=== PATIENT | female | born 1955 | race Caucasian/White ===

== ENCOUNTER 2017-06-11 10:53 | Inpatient (IN) | payer OTHER, MEDICAID ==
[2017-06-11] MEDS: NS 1000 ML 1,000 ML IV SCH (13:08)
[2017-06-11 13:41] LABS: BASOPHILS % (AUTO) 0.4 % (0.2-1.0); EOSINOPHILS # (AUTO) 0.1 x10^3/uL (0.0-0.2); EOSINOPHILS % (AUTO) 1.5 % (0.9-2.9); HEMATOCRIT 39.1 % (36.0-47.0); HEMOGLOBIN 13.4 g/dL (12.0-16.0); LYMPHOCYTES # (AUTO) 2.2 X10^3/uL (1.3-2.9); LYMPHOCYTES % (AUTO) 33.8 % (21.0-51.0); MEAN CORPUSCULAR HEMOGLOBIN 31.7 pg (27.0-34.0); MEAN CORPUSCULAR HGB CONC 34.3 g/dL (33.0-35.0); MEAN CORPUSCULAR VOLUME 92.5 fL (80.0-100.0); MEAN PLATELET VOLUME 10.5 fL (7.4-11.0); MONOCYTES # (AUTO) 0.6 x10^3/uL (0.3-0.8); NEUTROPHILS # (AUTO) 3.7 x10^3/uL (2.2-4.8); NEUTROPHILS % (AUTO) 55.3 % (42.0-75.0); PLATELET COUNT 146 X10^3/uL (150.0-450.0); RED BLOOD COUNT 4.23 X10^6/uL (3.5-5.4); RED CELL DISTRIBUTION WIDTH 13.9 % (11.6-16.5); WHITE BLOOD COUNT 6.6 X10^3/uL (3.6-10.0)
[2017-06-11] MEDS: DEMEROL INJ IVP PRN ×2 (13:43→20:24)
[2017-06-11 13:52] LABS: ALANINE AMINOTRANSFERASE 37 Units/L (12-78); ALBUMIN 3.6 g/dL (3.4-5.0); ALKALINE PHOSPHATASE 101 Units/L (46-116); AMYLASE 43 Units/L (25-115); ASPARTATE AMINO TRANSFERASE 40 Units/L (15-37); BLOOD UREA NITROGEN 10 mg/dL (7-18); CALCIUM 9.1 mg/dL (8.5-10.1); CARBON DIOXIDE 33.3 mmol/L (21-32); CHLORIDE 102 mmol/L (98-107); CREATININE 0.56 mg/dL (0.55-1.02); LIPASE 111 Units/L (73-393); SODIUM 139 mmol/L (136-145); TOTAL PROTEIN 7.7 g/dL (6.4-8.2); eGFR BLACK RACES > 60 (>60); eGFR NON BLACK RACES > 60 (>60)
[2017-06-11 15:43] LABS: BILIRUBIN,URINE NEGATIVE (NEGATIVE); BLOOD/HEMOGLOBIN,URINE 1+ (NEGATIVE); GLUCOSE, URINE NEGATIVE (NEGATIVE); KETONES,URINE NEGATIVE (NEGATIVE); LEUKOCYTE ESTERASE ,URINE NEGATIVE (NEGATIVE); NITRITES,URINE NEGATIVE (NEGATIVE); PROTEIN,URINE NEGATIVE (NEGATIVE); UROBILINOGEN,URINE NORMAL (NORMAL)
[2017-06-11 15:51] LABS: APPEARANCE,URINE CLEAR (CLEAR); COLOR,URINE YELLOW (YELLOW)
[2017-06-11 15:52] LABS: BACTERIA,URINE NEGATIVE /HPF (NEGATIVE); SQUAMOUS EPITHELIAL CELL,UR NEGATIVE /HPF (NEGATIVE)
--- NOTE | 2017-06-11 15:55 | US ---
Ultrasound gallbladder Indication: Pain and history the pancreatitis. Technique: Dynamic grayscale Doppler imaging through the abdomen using a transabdominal approach. Findings: The gallbladder wall is not thickened at 2 mm. The common bile duct is 4 mm. The right kidn ey measures 11 cm in length. No hydronephrosis identified. Limited images of the pancreas shows no ac juanita abnormality. Impression: No acute abnormality Reported By:
[2017-06-11] MEDS ORDERED: NS 100 ML IV 100 ML IV ONE (17:02)
[2017-06-11] MEDS: ZOFRAN INJ 4 MG VIAL IVP PRN ×2 (18:13→22:09)
--- NOTE | 2017-06-11 18:25 | RAD ---
Examination: KUB History: Abdominal pain Findings: There is mild gaseous distention of small and large bowel in a nonobstructing pattern. Ther e is slight residual residual contrast material in the colon. Contrast is also present in the urinary tract. The bladder is distended. There is no evidence for ascites, organ enlargement or pathologic c alcification. Impression: No acute abnormality noted. Contrast material in urinary tract and bowel, consistent with recent diagnostic imaging. Nonspecific dilatation of urinary bladder. Reported By:
--- NOTE | 2017-06-11 19:13 | DR.UPDATE ---
H&P Update History and Physical Update: WAS SEEN IN THE OFFICE TODAY. A H&P WAS COMPLETED PRIOR TO ADMISSION. PATIENT HAS BEEN SEEN AND EXAMINED WITH NO CHANGES NOTED TO H&P. Changes noted: NO Yes with the following:
--- NOTE | 2017-06-11 22:42 | CT ---
CT abdomen with contrast Indication: History pancreatitis. Comparison: 06/11/2017 ultrasound Technique: Helical images through the abdomen with IV and oral contrast. Coronal and sagittal reforma ts provided. Findings: Review of bone windows shows L4 on L5 degenerative change destructive osseous lesions seen. Limited images through the lower chest demonstrate no acute abnormality. Abdomen: The liver, gallbladder spleen pancreas and adrenal glands. The stomach visualized small katharina l appear. Contrast enters the without obstruction visualized colonic loops show acute abnormality vas culature shows minimal calcification kidneys. Single calcifications noted the head of the pancreas. Impression: 1. No evidence of acute pancreatitis. Single calcification in the head of the pancreas could reflect episode of prior pancreatitis. 2. No other acute abdominal abnormality. 3. Spine degenerative change minimal vascular plaque. Reported By:
[2017-06-12] MEDS: NS 1000 ML 1,000 ML IV SCH ×4 (03:18→16:49)
[2017-06-12] MEDS: ZOFRAN INJ 4 MG VIAL IVP PRN ×3 (03:19→16:30)
[2017-06-12] MEDS: DEMEROL INJ IVP PRN ×3 (03:19→19:34)
[2017-06-12 05:23] LABS: BASOPHILS % (AUTO) 0.5 % (0.2-1.0); EOSINOPHILS # (AUTO) 0.1 x10^3/uL (0.0-0.2); EOSINOPHILS % (AUTO) 2.3 % (0.9-2.9); HEMOGLOBIN 12.9 g/dL (12.0-16.0); LYMPHOCYTES % (AUTO) 37.6 % (21.0-51.0); MEAN CORPUSCULAR HEMOGLOBIN 31.5 pg (27.0-34.0); MEAN CORPUSCULAR HGB CONC 33.9 g/dL (33.0-35.0); MEAN CORPUSCULAR VOLUME 92.9 fL (80.0-100.0); MEAN PLATELET VOLUME 10.7 fL (7.4-11.0); MONOCYTES # (AUTO) 0.5 x10^3/uL (0.3-0.8); MONOCYTES % (AUTO) 10.3 % (0.0-13.0); NEUTROPHILS # (AUTO) 2.6 x10^3/uL (2.2-4.8); NEUTROPHILS % (AUTO) 49.3 % (42.0-75.0); PLATELET COUNT 134 X10^3/uL (150.0-450.0); RED BLOOD COUNT 4.09 X10^6/uL (3.5-5.4); RED CELL DISTRIBUTION WIDTH 13.7 % (11.6-16.5); WHITE BLOOD COUNT 5.3 X10^3/uL (3.6-10.0)
[2017-06-12 05:26] LABS: ALANINE AMINOTRANSFERASE 30 Units/L (12-78); ALBUMIN 3.1 g/dL (3.4-5.0); ALKALINE PHOSPHATASE 89 Units/L (46-116); AMYLASE 34 Units/L (25-115); ASPARTATE AMINO TRANSFERASE 33 Units/L (15-37); BLOOD UREA NITROGEN 8 mg/dL (7-18); CALCIUM 8.8 mg/dL (8.5-10.1); CHLORIDE 105 mmol/L (98-107); CHOL/HDL RATIO 3.8 (0.0-5.0); CHOLESTEROL 161 mg/dL (0-200); COR CA(FOR HYPOALB) 9.5 mg/dL (8.5-10.1); HDL CHOLESTEROL 42 mg/dL (40-60); LIPASE 93 Units/L (73-393); SODIUM 141 mmol/L (136-145); TRIGLYCERIDES 137 mg/dL (0-150); eGFR BLACK RACES > 60 (>60); eGFR NON BLACK RACES > 60 (>60)
[2017-06-12 10:04] VITALS: BMI 16.8
[2017-06-12] MEDS: LOPRESSOR TAB 25 MG PO SCH ×2 (10:48→20:06)
[2017-06-12] MEDS: PROzac PO SCH (10:49)
[2017-06-12] MEDS: LANOXIN PO SCH (11:19)
--- NOTE | 2017-06-12 14:34 | NM ---
Nuclear medicine HIDA scan with ejection fraction Indication:Abdominal pain Comparison: Ultrasound on 06/11/2017 Technique: Multiple scintigraphic images of the abdomen were obtained the intravenous administration of 5.4 mCi of technetium labeled Choletec. Following distention of the gallbladder with radiotracer 8 oz of oral Ensure was administered. An es timated gallbladder ejection fraction was calculated based on the physiologic response to a fatty millicent l. Findings: Homogeneous uptake of radiotracer is seen throughout the liver. This intrabiliary ductal system is o bserved normally. The common hepatic and common bile duct grossly appear unremarkable with normal bi liary-bowel transit. The gallbladder is observed to fill normally. After the IV administration of insure, an abnormal gallbladder ejection fraction of 26% (normal > 35% ) is observed. IMPRESSION: 1. Normal hepatobiliary imaging scan. 2. Decreased gallbladder ejection fraction measuring approximately 26% . Reported By:
--- NOTE | 2017-06-12 16:48 | RAD ---
HISTORY: 61-year-old female, preoperative examination for cholecystectomy. Study: Frontal view of the chest. Comparison: None. Findings: The trachea is midline. The cardiac silhouette is unremarkable. Prominent interstitium and mild fla ttening of the diaphragms with trace right effusion. Soft tissues are unremarkable. Osseous structur es are unremarkable. IMPRESSION: 1. Trace right effusion with findings consistent with COPD. Reported By:
[2017-06-12] MEDS: LIPITOR TAB 40 MG PO SCH (20:06)
[2017-06-13] MEDS: NS 1000 ML 1,000 ML IV SCH ×4 (01:58→20:43)
[2017-06-13] MEDS: ZOFRAN INJ 4 MG VIAL IVP PRN ×3 (01:59→20:32)
[2017-06-13] MEDS: TYLENOL #3 TAB (W/CODEINE) PO PRN ×2 (04:13→18:18)
[2017-06-13 05:16] LABS: BASOPHILS % (AUTO) 0.5 % (0.2-1.0); EOSINOPHILS # (AUTO) 0.1 x10^3/uL (0.0-0.2); EOSINOPHILS % (AUTO) 2.6 % (0.9-2.9); HEMATOCRIT 39.6 % (36.0-47.0); HEMOGLOBIN 13.4 g/dL (12.0-16.0); LYMPHOCYTES # (AUTO) 2.1 X10^3/uL (1.3-2.9); LYMPHOCYTES % (AUTO) 39.7 % (21.0-51.0); MEAN CORPUSCULAR HEMOGLOBIN 31.6 pg (27.0-34.0); MEAN CORPUSCULAR HGB CONC 33.7 g/dL (33.0-35.0); MEAN CORPUSCULAR VOLUME 93.6 fL (80.0-100.0); MEAN PLATELET VOLUME 10.7 fL (7.4-11.0); MONOCYTES # (AUTO) 0.5 x10^3/uL (0.3-0.8); NEUTROPHILS # (AUTO) 2.4 x10^3/uL (2.2-4.8); NEUTROPHILS % (AUTO) 47.2 % (42.0-75.0); PLATELET COUNT 148 X10^3/uL (150.0-450.0); RED BLOOD COUNT 4.23 X10^6/uL (3.5-5.4); RED CELL DISTRIBUTION WIDTH 13.8 % (11.6-16.5); WHITE BLOOD COUNT 5.2 X10^3/uL (3.6-10.0)
[2017-06-13 05:23] LABS: ALANINE AMINOTRANSFERASE 31 Units/L (12-78); ALBUMIN 3.3 g/dL (3.4-5.0); ALKALINE PHOSPHATASE 97 Units/L (46-116); ASPARTATE AMINO TRANSFERASE 30 Units/L (15-37); BLOOD UREA NITROGEN 13 mg/dL (7-18); CALCIUM 9.2 mg/dL (8.5-10.1); CARBON DIOXIDE 30.5 mmol/L (21-32); CHLORIDE 105 mmol/L (98-107); COR CA(FOR HYPOALB) 9.8 mg/dL (8.5-10.1); SODIUM 142 mmol/L (136-145); TOTAL PROTEIN 7.4 g/dL (6.4-8.2); eGFR BLACK RACES > 60 (>60); eGFR NON BLACK RACES > 60 (>60)
[2017-06-13] MEDS: LANOXIN PO SCH (08:31)
[2017-06-13] MEDS: LOPRESSOR TAB 25 MG PO SCH ×2 (08:33→20:26)
[2017-06-13] MEDS: PROzac PO SCH (08:35)
--- NOTE | 2017-06-13 08:44 | DR.CONSULT ---
Consult - Consultation for Day of: Date: 06/12/17 - Chief Complaint Chief Complaint: abdominal pain - Allergies Allergies/Adverse Reactions: Allergies Allergy/AdvReac Type Severity Reaction Status Date / Time No Known Drug Allergies Allergy Verified 06/11/17 13:23 - History of Present Illness History of Present Illness: Patient is a 61yo female who was referred for abdominal pain, recent pancreatitis. Pateint complains of diffuse abdominal pain , nausea, dyspepsia, and melena for 2 days. Patient denies dysphagia, vomiting, diarrhea, constipation and hematochezia. Patient was recently in [facility] diagnosed with pancreatitis and was also noted to have a positive Hep c antibody , Hep B surface antigen non reactive, Hep B core antibody IGM equivocal. She had a EGD on 05/15/17 in [facility] by Dr. Holley which showede gastritis and hiatal hernia. - Past Medical History Past Medical History: Depression, Hypertension Additional Medical History: Atrial fibrillation, Hyperlipemia - Past Surgical History Additional Surgical History: Tubal Ligation, Cyst removal of right breast, removal of mass to left shoulder - Family History Family Medical History: Cancer, [place] - Social History Does patient currently use any type of tobacco product: Yes Have you used tobacco products in the last 12 months: Yes Type of Tobacco Use: Cigarettes How many years tobacco product used: 40 Does any household member use tobacco: No Alcohol Use: None Drug Use: Prescription Drugs, Marijuana - Medications Home Medications: Acetaminophen with Codeine [Tylenol with Codeine #3 Tablet] 1 tab PO Q6HR PRN [History Confirmed 06/11/17] Albuterol Sulfate [VENTOLIN or PROAIR HFA] 2 puff INH QID PRN 06/11/17 [History Confirmed 06/11/17] Aspirin EC [ASPIRIN EC 81 MG *] 1 tab PO DAILY 06/11/17 [History Confirmed 06/11] Atorvastatin Calcium [LIPITOR Tab 40 mg *] 1 tab PO HS 06/11/17 [History Confirmed 06/11/17] Digoxin [Lanoxin] 0.25 mg PO DAILY 06/11/17 [History Confirmed 06/11/17] Fluoxetine HCl [FLUOXETINE 20 MG *] 20 mg PO DAILY 06/11/17 [History Confirmed 06/11/17] Metoprolol Tartrate 25 mg PO BID 06/11/17 [History Confirmed 06/11/17] - Review of Systems Constitutional: No Symptoms Reported Eyes: No Symptoms Reported ENT: No Symptoms Reported Respiratory: No Symptoms Reported Cardiovascular: No Symptoms Reported Gastrointestinal: See HPI, Nausea, Abdominal Pain (diffuse), Melena (x2days) Genitourinary: No Symptoms Reported Musculoskeletal: No Symptoms Reported Skin: No Symptoms Reported Neurological: No Symptoms Reported - Physical Exam Vital Signs: Temperature 98.1 F Pulse Rate [Right Brachial] 50 Pulse Rate 65 Respiratory Rate 18 Blood Pressure [Left Arm] 174/72 Blood Pressure [Right Arm] 154/70 O2 Sat by Pulse Oximetry 97 Oriented: Normal Eyes: Normal Ear: Normal Nose: Normal Throat: Normal Respiratory: Clear Throughout Cardiovascular: Normal : Normal Auscultation: Bowel Sounds: Normal Palpation: Normal Tenderness: Diffuse Skin: Normal Musculoskeletal: Normal Psychiatric: Normal Mood Description: Calm Affect: Normal Speech Pattern: Clear, Appropriate - Plan Plan: Assessment. 1. Diffuse abdominal pain r/o gastric ulcer. 2. Chronic viral HEP C. 3. History of pancreatitis. 4. GERD. Plan. 1. Schedule for EGD on . 2. Hep C RNa quant. 3. Monitor. 4. Continue protonix IV
[2017-06-13] MEDS: DEMEROL INJ IVP PRN (11:20)
--- NOTE | 2017-06-13 13:50 | PCM.PROG ---
Progress Note - Progress Note for Day of Date: 06/12/17 - Subjective Subjective: WAS ADMITTED FOR ABDOMINAL PAIN. SHE WAS RECENTLY DISCHARGED FROM [facility] WHERE SHE WAS TREATED FOR PANCREATITIS. TODAY , SHE IS ALERT AND ORIENTED, LYING IN BED ON MORNING ROUNDS. SHE IS NOTED WITH COMPLAINTS OF DIFFUSE ABDOMINAL PAIN AND DYSPEPSIA. SHE REPORTS HAVING DARK STOOLS FOR SEVERAL DAYS. PATIENT REPORTS A HISTORY OF HEPATITIS C. SHE STATES THAT SHE RECENTLY HAD AN EGD WHICH REPORTED GASTRITIS AND A HIATAL HERNIA. ON EXAMINATION, LUNGS ARE CLEAR TO AUSCULTATION. ABDOMEN IS ROUND, SOFT, AND NOTED WITH MODERATE DIFFUSE TENDERNESS. NORMAL BOWEL SOUNDS ARE NOTED IN ALL QUADRANTS. HER VITAL SIGNS TODAY ARE 98.7-72-18-95%-126/69. ABNORMAL LAB VALUES INCLUDE THE FOLLOWING: PLT COUNT 134, ALBUMIN 3.1, A/G RATIO 0.8. AN ABDOMEN/ PELVIS CT WAS OBTAINED ON ADMISSION AND REPORTED NO EVIDENCE OF ACUTE PANCREATITIS. NO OTHER ACUTE ABDOMINAL ABNORMALITY. SPINE DEGENERATIVE CHANGE MINIMAL VASCULAR PLAQUE. A KUB REPORTED NO ACUTE ABNORMALITY NOTED. GALLBLADDER US REPORTED NO ACUTE ABNORMALITY. A HIDA SCAN WAS DONE THIS MORNING AND REPORTED AN EJECTION FRACTION OF 26%. WE PLANNED TO CONSULT FOR POSSIBLE LAP RICARDO SHOULD HE AND PATIENT DECIDE THAT BEING AN OPTION. WE WILL ALSO CONSULT . OTHERWISE, WE WILL CONTINUE WITH CURRENT PLAN OF CARE. WE PLAN TO FOLLOW UP WITH AM LABS AND CONTINUE TO MONITOR PATIENT. - Past Medical Family Social History Past Med/Fam/Surg Hx: No changes since H&P Allergies: Allergies No Known Drug Allergies Allergy (Verified 06/11/17 13:23) - Review of Systems ROS: No change since H&P - Vital Signs and I&O's Vital Signs: Temperature 97.9 F Pulse Rate [Right Brachial] 50 Pulse Rate 65 Respiratory Rate 20 Blood Pressure [Left Arm] 121/72 Blood Pressure [Right Arm] 154/70 O2 Sat by Pulse Oximetry 97 Intake and Output: Intake & Output 06/11/17 06/12/17 06/13/17 06/14/17 11:59 11:59 11:59 11:59 Intake Total 1050 1740 Output Total 150 Balance 900 1740 - Physical Exam Oriented: Normal Eyes: Normal Ear: Normal Nose: Normal Throat: Normal Respiratory: Normal Cardiovascular: Normal : Normal Auscultation: Bowel Sounds: Normal Palpation: Normal Tenderness: Diffuse, Moderate. negative: Rebound, Guarding, Rigidity Skin: Normal Musculoskeletal: Normal Psychiatric: Normal Mood Description: Calm Affect: Normal Speech Pattern: Clear, Appropriate - Laboratory and Diagnostics Result Diagrams: 06/13/17 03:28 06/13/17 03:28 Labs: 06/11/17 15:29 Urine,Clean Catch Urine Culture - Final Laboratory WBC 5.2 X10^3/uL (3.6-10.0) 06/13/17 03:28 RBC 4.23 X10^6/uL (3.5-5.4) 06/13/17 03:28 Hgb 13.4 g/dL (12.0-16.0) 06/13/17 03:28 Hct 39.6 % (36.0-47.0) 06/13/17 03:28 MCV 93.6 fL (80.0-100.0) 06/13/17 03:28 MCH 31.6 pg (27.0-34.0) 06/13/17 03:28 MCHC 33.7 g/dL (33.0-35.0) 06/13/17 03:28 RDW 13.8 % (11.6-16.5) 06/13/17 03:28 Plt Count 148 X10^3/uL (150.0-450.0) L 06/13/17 03:28 MPV 10.7 fL (7.4-11.0) 06/13/17 03:28 Neut % 47.2 % (42.0-75.0) 06/13/17 03:28 Lymph % 39.7 % (21.0-51.0) 06/13/17 03:28 [place] % 10.0 % (0.0-13.0) 06/13/17 03:28 Eos % 2.6 % (0.9-2.9) 06/13/17 03:28 Baso % 0.5 % (0.2-1.0) 06/13/17 03:28 Neut # 2.4 x10^3/uL (2.2-4.8) 06/13/17 03:28 Lymph # 2.1 X10^3/uL (1.3-2.9) 06/13/17 03:28 [place] # 0.5 x10^3/uL (0.3-0.8) 06/13/17 03:28 Eos # 0.1 x10^3/uL (0.0-0.2) 06/13/17 03:28 Baso # 0.0 X10^3/uL (0.0-0.1) 06/13/17 03:28 Absolute Nucleated RBC 0.1 /100WBC 06/13/17 03:28 Sodium 142 mmol/L (136-145) 06/13/17 03:28 Corrected Sodium TNP 06/13/17 03:28 Potassium 4.1 mmol/L (3.5-5.1) 06/13/17 03:28 Chloride 105 mmol/L (98-107) 06/13/17 03:28 Carbon Dioxide 30.5 mmol/L (21-32) 06/13/17 03:28 BUN 13 mg/dL (7-18) 06/13/17 03:28 Creatinine 0.60 mg/dL (0.55-1.02) 06/13/17 03:28 Est GFR (MDRD) Af Amer > 60 (>60) 06/13/17 03:28 Est GFR (MDRD) Non-Af > 60 (>60) 06/13/17 03:28 Glucose 85 mg/dL (65-99) 06/13/17 03:28 Calcium 9.2 mg/dL (8.5-10.1) 06/13/17 03:28 Corrected Calcium 9.8 mg/dL (8.5-10.1) 06/13/17 03:28 Total Bilirubin 0.40 mg/dL (0.2-1.0) 06/13/17 03:28 AST 30 Units/L (15-37) 06/13/17 03:28 ALT 31 Units/L (12-78) 06/13/17 03:28 Alkaline Phosphatase 97 Units/L (46-116) 06/13/17 03:28 Total Protein 7.4 g/dL (6.4-8.2) 06/13/17 03:28 Albumin 3.3 g/dL (3.4-5.0) L 06/13/17 03:28 Globulin 4.1 g/dL (2.5-4.5) 06/13/17 03:28 Albumin/Globulin Ratio 0.8 Ratio (1.1-2.1) L 06/13/17 03:28 Triglycerides 137 mg/dL (0-150) 06/12/17 03:55 Cholesterol 161 mg/dL (0-200) 06/12/17 03:55 LDL Cholesterol, Calc 92 mg/dL (0-100) 06/12/17 03:55 HDL Cholesterol 42 mg/dL (40-60) 06/12/17 03:55 Cholesterol/HDL Ratio 3.8 (0.0-5.0) 06/12/17 03:55 Amylase 34 Units/L (25-115) 06/12/17 03:55 Lipase 93 Units/L (73-393) 06/12/17 03:55 Specimen Type Clean catch urine 06/11/17 15:15 Urine Color Yellow (YELLOW) 06/11/17 15:15 Urine Appearance Clear (CLEAR) 06/11/17 15:15 Urine pH 8.0 (5.0 - 8.0) 06/11/17 15:15 Ur Specific [place] 1.010 (1.000-1.030) 06/11/17 15:15 Urine Protein Negative (NEGATIVE) 06/11/17 15:15 Urine Glucose (UA) Negative (NEGATIVE) 06/11/17 15:15 Urine Ketones Negative (NEGATIVE) 06/11/17 15:15 Urine Occult Blood 1+ (NEGATIVE) 06/11/17 15:15 Urine Nitrite Negative (NEGATIVE) 06/11/17 15:15 Urine Bilirubin Negative (NEGATIVE) 06/11/17 15:15 Urine Urobilinogen Normal (NORMAL) 06/11/17 15:15 Ur Leukocyte Esterase Negative (NEGATIVE) 06/11/17 15:15 Urine RBC 2-3 /HPF (NEGATIVE) 06/11/17 15:15 Urine WBC None seen /HPF (NEGATIVE) 06/11/17 15:15 Ur Squamous Epith Cells Negative /HPF (NEGATIVE) 06/11/17 15:15 Urine Bacteria Negative /HPF (NEGATIVE) 06/11/17 15:15 Ur Culture Indicated? Yes/culture set up 06/11/17 15:15 Stool Description 100g,brown,formed 06/12/17 18:28 Stl Occult Blood (IFOB) Negative (NEGATIVE) 06/12/17 18:28 Digoxin 0.35 ng/mL (0.9-2) L 06/12/17 03:55 H. pylori IgG Antibody Negative (NEGATIVE) 06/11/17 13:10 - Plan (1) Abdominal pain Status: Acute Qualifiers: Abdominal location: generalized Qualified Code(s): R10.84 - Generalized abdominal pain Plan: CONSULT FOR POSSIBLE LAP RICARDO, CONSULT GASTROENTEROLOGY, CONTINUE DEMEROL 25MG IV Q6H, CONTINUE TO MONITOR
[2017-06-13] MEDS: LIPITOR TAB 40 MG PO SCH (20:25)
[2017-06-14 05:58] LABS: BASOPHILS % (AUTO) 0.7 % (0.2-1.0); EOSINOPHILS # (AUTO) 0.2 x10^3/uL (0.0-0.2); EOSINOPHILS % (AUTO) 2.6 % (0.9-2.9); HEMATOCRIT 38.1 % (36.0-47.0); LYMPHOCYTES # (AUTO) 2.1 X10^3/uL (1.3-2.9); LYMPHOCYTES % (AUTO) 36.8 % (21.0-51.0); MEAN CORPUSCULAR HEMOGLOBIN 31.6 pg (27.0-34.0); MEAN CORPUSCULAR HGB CONC 34.3 g/dL (33.0-35.0); MEAN CORPUSCULAR VOLUME 92.4 fL (80.0-100.0); MEAN PLATELET VOLUME 10.8 fL (7.4-11.0); MONOCYTES # (AUTO) 0.7 x10^3/uL (0.3-0.8); MONOCYTES % (AUTO) 11.8 % (0.0-13.0); NEUTROPHILS # (AUTO) 2.8 x10^3/uL (2.2-4.8); NEUTROPHILS % (AUTO) 48.1 % (42.0-75.0); PLATELET COUNT 146 X10^3/uL (150.0-450.0); RED BLOOD COUNT 4.12 X10^6/uL (3.5-5.4); RED CELL DISTRIBUTION WIDTH 13.8 % (11.6-16.5); WHITE BLOOD COUNT 5.8 X10^3/uL (3.6-10.0)
[2017-06-14 06:12] LABS: ALANINE AMINOTRANSFERASE 22 Units/L (12-78); ALBUMIN 3.2 g/dL (3.4-5.0); ALKALINE PHOSPHATASE 98 Units/L (46-116); ASPARTATE AMINO TRANSFERASE 23 Units/L (15-37); BLOOD UREA NITROGEN 12 mg/dL (7-18); CALCIUM 8.8 mg/dL (8.5-10.1); CARBON DIOXIDE 29.8 mmol/L (21-32); CHLORIDE 107 mmol/L (98-107); COR CA(FOR HYPOALB) 9.4 mg/dL (8.5-10.1); CREATININE 0.55 mg/dL (0.55-1.02); SODIUM 144 mmol/L (136-145); TOTAL PROTEIN 7.1 g/dL (6.4-8.2); eGFR BLACK RACES > 60 (>60); eGFR NON BLACK RACES > 60 (>60)
[2017-06-14] MEDS: NS 1000 ML 1,000 ML IV SCH ×2 (06:25→19:40)
[2017-06-14] MEDS: LANOXIN PO SCH (08:01)
[2017-06-14] MEDS: PROzac PO SCH (09:54)
[2017-06-14] MEDS: LOPRESSOR TAB 25 MG PO SCH ×2 (09:54→20:27)
[2017-06-14] MEDS ORDERED: DIPRIVAN VIAL 20 ML ONE (09:59)
[2017-06-14] MEDS: PROTONIX TAB 40 MG PO SCH ×2 (10:58→20:27)
[2017-06-14] MEDS: TYLENOL #3 TAB (W/CODEINE) PO PRN (10:58)
[2017-06-14] MEDS: ZOFRAN INJ 4 MG VIAL IVP PRN ×2 (14:43→20:27)
[2017-06-14] MEDS: LIPITOR TAB 40 MG PO SCH (20:27)
[2017-06-14] MEDS: DEMEROL INJ IVP PRN (20:35)
[2017-06-15 04:30] LABS: BASOPHILS % (AUTO) 0.5 % (0.2-1.0); EOSINOPHILS # (AUTO) 0.1 x10^3/uL (0.0-0.2); HEMATOCRIT 35.6 % (36.0-47.0); LYMPHOCYTES # (AUTO) 2.1 X10^3/uL (1.3-2.9); LYMPHOCYTES % (AUTO) 32.9 % (21.0-51.0); MEAN CORPUSCULAR HEMOGLOBIN 31.6 pg (27.0-34.0); MEAN CORPUSCULAR HGB CONC 33.7 g/dL (33.0-35.0); MEAN CORPUSCULAR VOLUME 93.7 fL (80.0-100.0); MEAN PLATELET VOLUME 10.6 fL (7.4-11.0); MONOCYTES # (AUTO) 0.7 x10^3/uL (0.3-0.8); MONOCYTES % (AUTO) 10.6 % (0.0-13.0); NEUTROPHILS # (AUTO) 3.4 x10^3/uL (2.2-4.8); PLATELET COUNT 119 X10^3/uL (150.0-450.0); RED BLOOD COUNT 3.79 X10^6/uL (3.5-5.4); RED CELL DISTRIBUTION WIDTH 13.4 % (11.6-16.5); WHITE BLOOD COUNT 6.3 X10^3/uL (3.6-10.0)
[2017-06-15 04:41] LABS: ALANINE AMINOTRANSFERASE 18 Units/L (12-78); ALBUMIN 2.8 g/dL (3.4-5.0); ALKALINE PHOSPHATASE 93 Units/L (46-116); ASPARTATE AMINO TRANSFERASE 19 Units/L (15-37); BLOOD UREA NITROGEN 10 mg/dL (7-18); CALCIUM 8.5 mg/dL (8.5-10.1); CARBON DIOXIDE 29.6 mmol/L (21-32); CHLORIDE 111 mmol/L (98-107); COR CA(FOR HYPOALB) 9.5 mg/dL (8.5-10.1); CREATININE 0.63 mg/dL (0.55-1.02); DIGOXIN 0.31 ng/mL (0.9-2); SODIUM 143 mmol/L (136-145); TOTAL PROTEIN 6.5 g/dL (6.4-8.2); eGFR BLACK RACES > 60 (>60); eGFR NON BLACK RACES > 60 (>60)
[2017-06-15 06:57] LABS: HEPATITIS B CORE ANTIBODY Positive (Negative)
[2017-06-15] MEDS: LANOXIN PO SCH (08:09)
[2017-06-15] MEDS: PROzac PO SCH (08:24)
[2017-06-15] MEDS: PROTONIX TAB 40 MG PO SCH ×2 (08:24→20:47)
[2017-06-15] MEDS: LOPRESSOR TAB 25 MG PO SCH ×3 (08:24→20:47)
--- NOTE | 2017-06-15 11:04 | PCM.PROG ---
Progress Note - Progress Note for Day of Date: 06/13/17 - Subjective Subjective: WAS ADMITTED FOR ABDOMINAL PAIN. SHE WAS RECENTLY DISCHARGED FROM [facility] WHERE SHE WAS TREATED FOR PANCREATITIS. TODAY , SHE IS ALERT AND ORIENTED, LYING IN BED ON MORNING ROUNDS. SHE CONTINUES WITH COMPLAINTS OF DIFFUSE ABDOMINAL PAIN.. ON EXAMINATION, LUNGS ARE CLEAR TO AUSCULTATION. ABDOMEN IS ROUND, SOFT, AND NOTED WITH MODERATE DIFFUSE TENDERNESS. NORMAL BOWEL SOUNDS ARE NOTED IN ALL QUADRANTS. HER VITAL SIGNS TODAY ARE 98.1-65-20-95%-139/71. ABNORMAL LAB VALUES INCLUDE THE FOLLOWING: ALBUMIN 3.3, A/G RATIO 0.8. CONSULTED WITH PATIENT. PATIENT AND DECIDED ON A LAPROSCOPIC CHOLECYSTECTOMY TO BE DONE ON SUNDAY. WE ARE IN AGREEMENT WITH PLAN. PATIENT IS MEDICALLY CLEARED FOR SURGERY. ALSO CONSULTED WITH PATIENT YESTERDAY. THEY ORDERED A HEPATITIS PANEL AND PLANNED FOR AN EGD ON TO RULE OUT A GASTRIC ULCER. TODAY, WE WILL CONTINUE WITH CURRENT PLAN OF CARE. WE PLAN TO FOLLOW UP WITH AM LABS AND CONTINUE TO MONITOR PATIENT. - Past Medical Family Social History Past Med/Fam/Surg Hx: No changes since H&P Allergies: Allergies No Known Drug Allergies Allergy (Verified 06/11/17 13:23) - Review of Systems ROS: No change since H&P - Vital Signs and I&O's Vital Signs: Temperature 98.4 F Pulse Rate [Right Brachial] 53 Pulse Rate 53 Respiratory Rate 20 Blood Pressure [Left Arm] 129/59 Blood Pressure [Right Arm] 170/76 O2 Sat by Pulse Oximetry 95 Intake and Output: Intake & Output 06/12/17 06/13/17 06/14/17 06/15/17 11:59 11:59 11:59 11:59 Intake Total 1050 1740 580 700 Output Total 150 Balance 900 1740 580 700 - Physical Exam Oriented: Normal Eyes: Normal Ear: Normal Nose: Normal Throat: Normal Respiratory: Normal Cardiovascular: Normal : Normal Auscultation: Bowel Sounds: Normal Palpation: Normal Tenderness: Diffuse, Moderate. negative: Rebound, Guarding, Rigidity Skin: Normal Musculoskeletal: Normal Psychiatric: Normal Mood Description: Calm Affect: Normal Speech Pattern: Clear, Appropriate - Laboratory and Diagnostics Result Diagrams: 06/15/17 03:45 06/15/17 03:45 Labs: 06/11/17 15:29 Urine,Clean Catch Urine Culture - Final Laboratory WBC 6.3 X10^3/uL (3.6-10.0) 06/15/17 03:45 RBC 3.79 X10^6/uL (3.5-5.4) 06/15/17 03:45 Hgb 12.0 g/dL (12.0-16.0) 06/15/17 03:45 Hct 35.6 % (36.0-47.0) L 06/15/17 03:45 MCV 93.7 fL (80.0-100.0) 06/15/17 03:45 MCH 31.6 pg (27.0-34.0) 06/15/17 03:45 MCHC 33.7 g/dL (33.0-35.0) 06/15/17 03:45 RDW 13.4 % (11.6-16.5) 06/15/17 03:45 Plt Count 119 X10^3/uL (150.0-450.0) L 06/15/17 03:45 MPV 10.6 fL (7.4-11.0) 06/15/17 03:45 Neut % 54.0 % (42.0-75.0) 06/15/17 03:45 Lymph % 32.9 % (21.0-51.0) 06/15/17 03:45 [place] % 10.6 % (0.0-13.0) 06/15/17 03:45 Eos % 2.0 % (0.9-2.9) 06/15/17 03:45 Baso % 0.5 % (0.2-1.0) 06/15/17 03:45 Neut # 3.4 x10^3/uL (2.2-4.8) 06/15/17 03:45 Lymph # 2.1 X10^3/uL (1.3-2.9) 06/15/17 03:45 [place] # 0.7 x10^3/uL (0.3-0.8) 06/15/17 03:45 Eos # 0.1 x10^3/uL (0.0-0.2) 06/15/17 03:45 Baso # 0.0 X10^3/uL (0.0-0.1) 06/15/17 03:45 Absolute Nucleated RBC 0.1 /100WBC 06/15/17 03:45 Sodium 143 mmol/L (136-145) 06/15/17 03:45 Corrected Sodium TNP 06/15/17 03:45 Potassium 3.6 mmol/L (3.5-5.1) 06/15/17 03:45 Chloride 111 mmol/L (98-107) H 06/15/17 03:45 Carbon Dioxide 29.6 mmol/L (21-32) 06/15/17 03:45 BUN 10 mg/dL (7-18) 06/15/17 03:45 Creatinine 0.63 mg/dL (0.55-1.02) 06/15/17 03:45 Est GFR (MDRD) Af Amer > 60 (>60) 06/15/17 03:45 Est GFR (MDRD) Non-Af > 60 (>60) 06/15/17 03:45 Glucose 102 mg/dL (65-99) H 06/15/17 03:45 Calcium 8.5 mg/dL (8.5-10.1) 06/15/17 03:45 Corrected Calcium 9.5 mg/dL (8.5-10.1) 06/15/17 03:45 Total Bilirubin 0.20 mg/dL (0.2-1.0) 06/15/17 03:45 AST 19 Units/L (15-37) 06/15/17 03:45 ALT 18 Units/L (12-78) 06/15/17 03:45 Alkaline Phosphatase 93 Units/L (46-116) 06/15/17 03:45 Total Protein 6.5 g/dL (6.4-8.2) 06/15/17 03:45 Albumin 2.8 g/dL (3.4-5.0) L 06/15/17 03:45 Globulin 3.7 g/dL (2.5-4.5) 06/15/17 03:45 Albumin/Globulin Ratio 0.8 Ratio (1.1-2.1) L 06/15/17 03:45 Triglycerides 137 mg/dL (0-150) 06/12/17 03:55 Cholesterol 161 mg/dL (0-200) 06/12/17 03:55 LDL Cholesterol, Calc 92 mg/dL (0-100) 06/12/17 03:55 HDL Cholesterol 42 mg/dL (40-60) 06/12/17 03:55 Cholesterol/HDL Ratio 3.8 (0.0-5.0) 06/12/17 03:55 Amylase 34 Units/L (25-115) 06/12/17 03:55 Lipase 93 Units/L (73-393) 06/12/17 03:55 Specimen Type Clean catch urine 06/11/17 15:15 Urine Color Yellow (YELLOW) 06/11/17 15:15 Urine Appearance Clear (CLEAR) 06/11/17 15:15 Urine pH 8.0 (5.0 - 8.0) 06/11/17 15:15 Ur Specific [place] 1.010 (1.000-1.030) 06/11/17 15:15 Urine Protein Negative (NEGATIVE) 06/11/17 15:15 Urine Glucose (UA) Negative (NEGATIVE) 06/11/17 15:15 Urine Ketones Negative (NEGATIVE) 06/11/17 15:15 Urine Occult Blood 1+ (NEGATIVE) 06/11/17 15:15 Urine Nitrite Negative (NEGATIVE) 06/11/17 15:15 Urine Bilirubin Negative (NEGATIVE) 06/11/17 15:15 Urine Urobilinogen Normal (NORMAL) 06/11/17 15:15 Ur Leukocyte Esterase Negative (NEGATIVE) 06/11/17 15:15 Urine RBC 2-3 /HPF (NEGATIVE) 06/11/17 15:15 Urine WBC None seen /HPF (NEGATIVE) 06/11/17 15:15 Ur Squamous Epith Cells Negative /HPF (NEGATIVE) 06/11/17 15:15 Urine Bacteria Negative /HPF (NEGATIVE) 06/11/17 15:15 Ur Culture Indicated? Yes/culture set up 06/11/17 15:15 Stool Description 100g,brown,formed 06/12/17 18:28 Stl Occult Blood (IFOB) Negative (NEGATIVE) 06/12/17 18:28 Digoxin 0.31 ng/mL (0.9-2) L 06/15/17 03:45 H. pylori IgG Antibody Negative (NEGATIVE) 06/11/17 13:10 Hep Bs Antibody 16.45 IU/L 06/13/17 03:28 Hep B Core Total Ab Positive (Negative) H 06/13/17 03:28 Tissue Pathology To follow 06/14/17 12:35 - Plan (1) Abdominal pain Status: Acute Qualifiers: Abdominal location: generalized Qualified Code(s): R10.84 - Generalized abdominal pain Plan: LAP RICARDO ON SUNDAY, EGD ON SUNDAY, CONTINUE DEMEROL 25MG IV Q6H, CONTINUE TO MONITOR (2) Depression Status: Acute Qualifiers: Depression Type: major depressive disorder Major depression recurrence: recurrent Active/Remission status: remission status unspecified Qualified Code(s): F33.9 - Major depressive disorder, recurrent, unspecified Plan: CONTINUE PROZAC, CONTINUE TO MONITOR (3) Hyperlipidemia Status: Chronic Qualifiers: Hyperlipidemia type: mixed hyperlipidemia Qualified Code(s): E78.2 - Mixed hyperlipidemia Plan: CONTINUE LIPITOR 40MG PO HS, CONTINUE TO MONITOR (4) Cardiac arrhythmia Status: Chronic Qualifiers: Arrhythmia type: unspecified cardiac arrhythmia Qualified Code(s): I49.9 - Cardiac arrhythmia, unspecified Plan: CONTINUE DIGOXIN 0.25MG PO DAILY, CONTINUE TO MONITOR (5) Hypertension Status: Chronic Qualifiers: Hypertension type: essential hypertension Qualified Code(s): I10 - Essential (primary) hypertension Plan: CONTINUE LOPRESSOR 25MG PO BID, CONTINUE TO MONITOR
[2017-06-15] MEDS ORDERED: ANCEF VIAL 1 GM ONE (11:50)
[2017-06-15] MEDS ORDERED: NS 100 ML IV 100 ML IV ONE (11:50)
[2017-06-15] MEDS ORDERED: NS 1000 ML 1,000 ML ONE (11:50)
[2017-06-15] MEDS ORDERED: XYLOCAINE 1% and EPINEPHRINE 1:100,000 ONE (12:37)
[2017-06-15] MEDS ORDERED: MARCAINE 0.25% INJ ONE (12:37)
[2017-06-15] MEDS ORDERED: FENTANYL INJ 100 mcg ONE (13:02)
[2017-06-15] MEDS ORDERED: NS IRRIGATION 3000 ML 3,000 ML IR ONE (14:10)
[2017-06-15] MEDS ORDERED: PHENERGAN INJ 25 MG IVP PRN (14:41)
[2017-06-15] MEDS ORDERED: DILAUDID INJ IVP PRN (14:41)
[2017-06-15] MEDS ORDERED: ZOFRAN INJ 4 MG VIAL IVP PRN (14:41)
[2017-06-15] MEDS ORDERED: BENADRYL INJ 50 MG VIAL IVP PRN (14:41)
[2017-06-15] MEDS ORDERED: REGLAN INJ 10 MG VIAL IVP PRN (14:41)
[2017-06-15] MEDS: DILAUDID INJ ONE ×3 (14:42→14:59)
--- NOTE | 2017-06-15 14:48 | OR.GENERIC ---
Post-Op Note Generic - Post-Op Note Operative Report: Date of Operation: June 15, 2017 Pre-Operative Diagnosis: 1. Biliary dyskinesia. 2. Cirrhosis. Post-Operative Diagnosis: 1. Biliary dyskinesia. 2. Cirrhosis. Procedure: Laparoscopic cholecystectomy. Surgeon: Lucas Meyer MD. Power Bender Operator: Gladys Strauss CRNA. Specimen: Gallbladder. Estimated blood loss: Minimal. Complications: None. Summary: The patient is a 61 year old female who presented with biliary dyskinesia. She also has a history of viral hepatitis. The patient was offered cholecystectomy. The risk and benefits of the procedure including difficulty with anesthesia, bleeding, infection, conversion to open procedure, bile leak, hernia formation, DVT, as well as PE were discussed with the patient. The patient understood these risks and requested the procedure. On June 15, 2017, the patient was brought to the operative theatre. A time out was performed verifying the patient and procedure. The patient received Ancef for pre-operative antibiosis. After satisfactory induction of general endotracheal anesthesia, the abdomen was prepped with Chloraprep and draped in the usual sterile fashion. The skin and subcutaneous tissue inferior to the umbilicus was anesthetized using local anesthetic. The skin was incised sharply. A 12 mm trocar was placed though the incision and into the peritoneal cavity using the Optiview technique. Carbon dioxide was infiltrated through this trocar to obtain a pneumoperitoneum of 15 mm Hg. A camera was placed through this trocar and swept in all directions. No injury was seen from entering the peritoneal cavity. The liver demonstrated nodular cirrhotic changes. A site was selected in the subxiphoid location for our 2nd trocar. The skin and fascia was anesthetized using local anesthetic. The skin was incised sharply. A 5 mm trocar was placed into the peritoneal cavity under direct visualization. In a similar manner, two additional 5 mm trocars were placed. The first was placed in the mid-clavicular line approximately 2 fingerbreadths inferior to the left costal margin and a second in the anterior axillary line approximately 2 fingerbreadths inferior to the left costal margin. The patient was placed in reverse Trendelenburg and rotated to the patients left. The gallbladder was grasped at the fundus and elevated cephalad and slightly lateral. The peritoneum on the medial and lateral aspects of the infundibulum of the gallbladder was scored using hook electrocautery. Using blunt dissection, the cystic artery and duct were isolated. The critical view of safety was obtained. Both of these structures were divided between endoclips. The gallbladder was dissected free using hook electrocautery. The gallbladder was placed in an endobag and removed through the umbilical trocar site without difficulty. The trocar and camera were placed back inside the abdomen. Our clips were noted in good position. Bleeding of the gallbladder fossa was controlled using electrocautery. At this point, the 5 mm trocars were removed under direct visualization. No bleeding was seen. The umbilical trocar was then removed and pneumoperitoneum released. The fascia at the umbilicus was closed using a 0-Vicryl placed in a figure-of- eight configuration. The skin edges at all incisions were re-approximated using inverted, interrupted 4-0 Monocryl sutures. Mastisol and Steri-strips were placed. Sterile dressings were placed. The patient was awakened and taken to the recovery room in stable condition. There were no complications. All counts were correct.
--- NOTE | 2017-06-15 15:07 | DR.CONSULT ---
Consult - Consultation for Day of: Date: 06/14/17 - Chief Complaint Chief Complaint: Biliary dyskinesia. - Allergies Allergies/Adverse Reactions: Allergies Allergy/AdvReac Type Severity Reaction Status Date / Time No Known Drug Allergies Allergy Verified 06/11/17 13:23 - History of Present Illness History of Present Illness: The patient is a 61 year old female who presented with upper abdominal pain, bloating, and nausea. The patient has a history of hepatitis B and C. Currently, quantitative viral load is pending. The patient underwent an EGD in [facility] that demonstrated gastritis and a hiatal hernia. The patient was in [place] with pancreatitis as well. On this admission, GI was consulted and an EGD performed that showed erosive gastritis and esophagitis. Further work-up demonstrated biliary dyskinesia (ejection fraction 26% on HIDA). The patient reports reproduction of symptoms with Ensure intake during HIDA scan. Surgery was consulted for cholecystectomy. The patient has a history of atrial fibrillation but denies any anticoagulation. She does report aspirin use. - Past Medical History Past Medical History: Depression, Hypertension Additional Medical History: Atrial fibrillation, Hyperlipemia, Viral hepatitis - Past Surgical History Additional Surgical History: Tubal Ligation, Cyst removal of right breast, removal of mass to left shoulder - Family History Family Medical History: Cancer, [place] - Social History Does patient currently use any type of tobacco product: Yes Have you used tobacco products in the last 12 months: Yes Type of Tobacco Use: Cigarettes How many years tobacco product used: 40 Does any household member use tobacco: No Alcohol Use: None Drug Use: Prescription Drugs, Marijuana - Medications Home Medications: Acetaminophen with Codeine [Tylenol with Codeine #3 Tablet] 1 tab PO Q6HR PRN [History Confirmed 06/11/17] Albuterol Sulfate [VENTOLIN or PROAIR HFA] 2 puff INH QID PRN 06/11/17 [History Confirmed 06/11/17] Aspirin EC [ASPIRIN EC 81 MG *] 1 tab PO DAILY 06/11/17 [History Confirmed 06/11] Atorvastatin Calcium [LIPITOR Tab 40 mg *] 1 tab PO HS 06/11/17 [History Confirmed 06/11/17] Digoxin [Lanoxin] 0.25 mg PO DAILY 06/11/17 [History Confirmed 06/11/17] Fluoxetine HCl [FLUOXETINE 20 MG *] 20 mg PO DAILY 06/11/17 [History Confirmed 06/11/17] Metoprolol Tartrate 25 mg PO BID 06/11/17 [History Confirmed 06/11/17] - Review of Systems Constitutional: No Symptoms Reported Eyes: No Symptoms Reported ENT: No Symptoms Reported Respiratory: No Symptoms Reported Cardiovascular: No Symptoms Reported Gastrointestinal: Abdominal Pain Genitourinary: No Symptoms Reported Musculoskeletal: No Symptoms Reported Skin: No Symptoms Reported Neurological: No Symptoms Reported - Physical Exam Vital Signs: Temperature 97.8 F Pulse Rate [Right Brachial] 53 Pulse Rate 53 Respiratory Rate 18 Blood Pressure [Left Arm] 129/59 Blood Pressure [Right Arm] 170/76 Blood Pressure 178/84 O2 Sat by Pulse Oximetry 98 Oriented: Normal, Time, Person, Place Eyes: Normal Ear: Normal Nose: Normal Throat: Normal Respiratory: Diminished Throughout Cardiovascular: Normal Auscultation: Bowel Sounds: Normal Palpation: Normal, Other (Scaphoid. Well-healed infra-umbilical scar.) Tenderness: Normal Skin: Normal Musculoskeletal: Normal Psychiatric: Normal Mood Description: Calm Affect: Normal Speech Pattern: Clear, Appropriate - Plan Plan: 61 year old female with biliary dyskinesia. Patient symptomatic. (+) h/ o hepatitis. LFT's and albumin noted. No ascites noted. Calculate MELD score and discuss with anesthesia. Dr. Jordan has cleared the patient for surgery. Risk / benefits of cholecystectomy discussed with the patient. The patient agrees to proceed. All questions answered. Thank you for this consultation.
[2017-06-15] MEDS ORDERED: PHENERGAN INJ 25 MG ONE (15:09)
[2017-06-15] MEDS ORDERED: ROBINUL ONE (15:49)
[2017-06-15] MEDS ORDERED: DIPRIVAN VIAL ONE (15:49)
[2017-06-15] MEDS ORDERED: NEOSTIGMINE INJ ONE (15:49)
[2017-06-15] MEDS ORDERED: ZOFRAN INJ 4 MG VIAL ONE ×2 (15:49→17:05)
[2017-06-15] MEDS ORDERED: TORADOL 30 MG VIAL ONE (15:49)
[2017-06-15] MEDS ORDERED: VERSED ONE (15:49)
[2017-06-15] MEDS ORDERED: QUELICIN (OR ANECTINE) ONE (15:49)
[2017-06-15] MEDS ORDERED: ATROPINE SULFATE ONE (15:49)
[2017-06-15] MEDS ORDERED: ULTANE GAS IN ONE (15:49)
[2017-06-15] MEDS: DEMEROL INJ IVP PRN (20:46)
[2017-06-15] MEDS: LIPITOR TAB 40 MG PO SCH (20:47)
[2017-06-15] MEDS: NS 1000 ML 1,000 ML IV SCH (20:52)
[2017-06-16] MEDS: ROXICODONE TAB 5 MG PO PRN ×2 (02:34→08:49)
[2017-06-16 06:13] LABS: BASOPHILS % (AUTO) 0.5 % (0.2-1.0); EOSINOPHILS # (AUTO) 0.1 x10^3/uL (0.0-0.2); EOSINOPHILS % (AUTO) 0.8 % (0.9-2.9); HEMATOCRIT 35.6 % (36.0-47.0); HEMOGLOBIN 12.2 g/dL (12.0-16.0); LYMPHOCYTES # (AUTO) 1.6 X10^3/uL (1.3-2.9); LYMPHOCYTES % (AUTO) 21.9 % (21.0-51.0); MEAN CORPUSCULAR HEMOGLOBIN 31.5 pg (27.0-34.0); MEAN CORPUSCULAR HGB CONC 34.2 g/dL (33.0-35.0); MEAN CORPUSCULAR VOLUME 92.3 fL (80.0-100.0); MEAN PLATELET VOLUME 11.1 fL (7.4-11.0); MONOCYTES # (AUTO) 0.6 x10^3/uL (0.3-0.8); MONOCYTES % (AUTO) 8.7 % (0.0-13.0); NEUTROPHILS # (AUTO) 4.9 x10^3/uL (2.2-4.8); NEUTROPHILS % (AUTO) 68.1 % (42.0-75.0); PLATELET COUNT 117 X10^3/uL (150.0-450.0); RED BLOOD COUNT 3.86 X10^6/uL (3.5-5.4); RED CELL DISTRIBUTION WIDTH 13.6 % (11.6-16.5); WHITE BLOOD COUNT 7.3 X10^3/uL (3.6-10.0)
[2017-06-16 06:23] LABS: ALANINE AMINOTRANSFERASE 70 Units/L (12-78); ALBUMIN 3.1 g/dL (3.4-5.0); ALKALINE PHOSPHATASE 107 Units/L (46-116); ASPARTATE AMINO TRANSFERASE 101 Units/L (15-37); BLOOD UREA NITROGEN 8 mg/dL (7-18); CARBON DIOXIDE 30.3 mmol/L (21-32); CHLORIDE 107 mmol/L (98-107); COR CA(FOR HYPOALB) 9.7 mg/dL (8.5-10.1); CREATININE 0.54 mg/dL (0.55-1.02); SODIUM 143 mmol/L (136-145); TOTAL PROTEIN 6.6 g/dL (6.4-8.2); eGFR BLACK RACES > 60 (>60); eGFR NON BLACK RACES > 60 (>60)
[2017-06-16] MEDS: LOPRESSOR TAB 25 MG PO SCH (08:48)
[2017-06-16] MEDS: PROzac PO SCH (08:48)
[2017-06-16] MEDS: LANOXIN PO SCH (08:48)
[2017-06-16] MEDS: PROTONIX TAB 40 MG PO SCH (08:49)
[2017-06-16 10:13] VITALS: BP 154/76
[2017-06-16] MEDS: DEMEROL INJ IVP PRN (13:05)
[2017-06-17 10:57] LABS: HBV DNA VIRAL LOG <1.3 log IU; HCV VIRAL LOG <1.2 log IU
--- NOTE | 2017-06-17 22:27 | PCM.PROG ---
Progress Note - Progress Note for Day of Date: 06/14/17 - Subjective Subjective: WAS ADMITTED FOR ABDOMINAL PAIN. SHE WAS RECENTLY DISCHARGED FROM [facility] WHERE SHE WAS TREATED FOR PANCREATITIS. TODAY , SHE IS ALERT AND ORIENTED, LYING IN BED ON MORNING ROUNDS. SHE CONTINUES WITH COMPLAINTS OF DIFFUSE ABDOMINAL PAIN. ON EXAMINATION, LUNGS ARE CLEAR TO AUSCULTATION. ABDOMEN IS ROUND, SOFT, AND NOTED WITH MODERATE, DIFFUSE TENDERNESS NOTED. NORMAL BOWEL SOUNDS ARE NOTED IN ALL QUADRANTS. HER VITAL SIGNS TODAY ARE 98.3-52-20-93%-160/74. ABNORMAL LAB VALUES INCLUDE THE FOLLOWING : PLT COUNT 146, ALBUMIN 3.2, A/G RATIO 0.8. CONSULTED WITH PATIENT. PATIENT AND DECIDED ON A LAPROSCOPIC CHOLECYSTECTOMY TO BE DONE ON SUNDAY. WE ARE IN AGREEMENT WITH PLAN. PLANS TO TAKE PATIENT TO THE OR TODAY FOR AN EGD. SHE REMAINS NPO AT THIS TIME. ORDERED A HEPATITIS PANEL. IT IS CURRENTLY PENDING RESULTS, HOWEVER, PATIENT DOES REPORT TO BE HEPATITIS B POSITIVE. TODAY, WE WILL CONTINUE WITH CURRENT PLAN OF CARE. WE PLAN TO FOLLOW UP WITH AM LABS AND CONTINUE TO MONITOR PATIENT. - Past Medical Family Social History Past Med/Fam/Surg Hx: No changes since H&P Allergies: Allergies No Known Drug Allergies Allergy (Verified 06/11/17 13:23) - Review of Systems ROS: No change since H&P - Vital Signs and I&O's Vital Signs: Temperature 98.7 F Pulse Rate [Right Brachial] 55 Pulse Rate 89 Respiratory Rate 20 Blood Pressure [Left Arm] 154/76 Blood Pressure [Right Arm] 154/76 Blood Pressure 178/84 O2 Sat by Pulse Oximetry 98 Intake and Output: Intake & Output 06/15/17 06/16/17 06/17/17 06/18/17 11:59 11:59 11:59 11:59 Intake Total 700 1060 Output Total 500 Balance 700 560 - Physical Exam Oriented: Normal, Time, Person, Place Eyes: Normal Ear: Normal Nose: Normal Throat: Normal Respiratory: Normal Cardiovascular: Normal : Normal Auscultation: Bowel Sounds: Normal Palpation: Normal Tenderness: Diffuse, Moderate, Guarding. negative: Rebound, Rigidity Skin: Normal Musculoskeletal: Normal Psychiatric: Normal Mood Description: Calm Affect: Normal Speech Pattern: Clear, Appropriate - Laboratory and Diagnostics Result Diagrams: 06/16/17 03:35 06/16/17 03:35 Labs: 06/11/17 15:29 Urine,Clean Catch Urine Culture - Final Laboratory WBC 7.3 X10^3/uL (3.6-10.0) 06/16/17 03:35 RBC 3.86 X10^6/uL (3.5-5.4) 06/16/17 03:35 Hgb 12.2 g/dL (12.0-16.0) 06/16/17 03:35 Hct 35.6 % (36.0-47.0) L 06/16/17 03:35 MCV 92.3 fL (80.0-100.0) 06/16/17 03:35 MCH 31.5 pg (27.0-34.0) 06/16/17 03:35 MCHC 34.2 g/dL (33.0-35.0) 06/16/17 03:35 RDW 13.6 % (11.6-16.5) 06/16/17 03:35 Plt Count 117 X10^3/uL (150.0-450.0) L 06/16/17 03:35 MPV 11.1 fL (7.4-11.0) H 06/16/17 03:35 Neut % 68.1 % (42.0-75.0) 06/16/17 03:35 Lymph % 21.9 % (21.0-51.0) 06/16/17 03:35 [place] % 8.7 % (0.0-13.0) 06/16/17 03:35 Eos % 0.8 % (0.9-2.9) L 06/16/17 03:35 Baso % 0.5 % (0.2-1.0) 06/16/17 03:35 Neut # 4.9 x10^3/uL (2.2-4.8) H 06/16/17 03:35 Lymph # 1.6 X10^3/uL (1.3-2.9) 06/16/17 03:35 [place] # 0.6 x10^3/uL (0.3-0.8) 06/16/17 03:35 Eos # 0.1 x10^3/uL (0.0-0.2) 06/16/17 03:35 Baso # 0.0 X10^3/uL (0.0-0.1) 06/16/17 03:35 Absolute Nucleated RBC 0.0 /100WBC 06/16/17 03:35 Sodium 143 mmol/L (136-145) 06/16/17 03:35 Corrected Sodium TNP 06/16/17 03:35 Potassium 3.6 mmol/L (3.5-5.1) 06/16/17 03:35 Chloride 107 mmol/L (98-107) 06/16/17 03:35 Carbon Dioxide 30.3 mmol/L (21-32) 06/16/17 03:35 BUN 8 mg/dL (7-18) 06/16/17 03:35 Creatinine 0.54 mg/dL (0.55-1.02) L 06/16/17 03:35 Est GFR (MDRD) Af Amer > 60 (>60) 06/16/17 03:35 Est GFR (MDRD) Non-Af > 60 (>60) 06/16/17 03:35 Glucose 84 mg/dL (65-99) 06/16/17 03:35 Calcium 9.0 mg/dL (8.5-10.1) 06/16/17 03:35 Corrected Calcium 9.7 mg/dL (8.5-10.1) 06/16/17 03:35 Total Bilirubin 0.50 mg/dL (0.2-1.0) 06/16/17 03:35 AST 101 Units/L (15-37) H 06/16/17 03:35 ALT 70 Units/L (12-78) 06/16/17 03:35 Alkaline Phosphatase 107 Units/L (46-116) 06/16/17 03:35 Total Protein 6.6 g/dL (6.4-8.2) 06/16/17 03:35 Albumin 3.1 g/dL (3.4-5.0) L 06/16/17 03:35 Globulin 3.5 g/dL (2.5-4.5) 06/16/17 03:35 Albumin/Globulin Ratio 0.9 Ratio (1.1-2.1) L 06/16/17 03:35 Triglycerides 137 mg/dL (0-150) 06/12/17 03:55 Cholesterol 161 mg/dL (0-200) 06/12/17 03:55 LDL Cholesterol, Calc 92 mg/dL (0-100) 06/12/17 03:55 HDL Cholesterol 42 mg/dL (40-60) 06/12/17 03:55 Cholesterol/HDL Ratio 3.8 (0.0-5.0) 06/12/17 03:55 Amylase 34 Units/L (25-115) 06/12/17 03:55 Lipase 93 Units/L (73-393) 06/12/17 03:55 Specimen Type Clean catch urine 06/11/17 15:15 Urine Color Yellow (YELLOW) 06/11/17 15:15 Urine Appearance Clear (CLEAR) 06/11/17 15:15 Urine pH 8.0 (5.0 - 8.0) 06/11/17 15:15 Ur Specific [place] 1.010 (1.000-1.030) 06/11/17 15:15 Urine Protein Negative (NEGATIVE) 06/11/17 15:15 Urine Glucose (UA) Negative (NEGATIVE) 06/11/17 15:15 Urine Ketones Negative (NEGATIVE) 06/11/17 15:15 Urine Occult Blood 1+ (NEGATIVE) 06/11/17 15:15 Urine Nitrite Negative (NEGATIVE) 06/11/17 15:15 Urine Bilirubin Negative (NEGATIVE) 06/11/17 15:15 Urine Urobilinogen Normal (NORMAL) 06/11/17 15:15 Ur Leukocyte Esterase Negative (NEGATIVE) 06/11/17 15:15 Urine RBC 2-3 /HPF (NEGATIVE) 06/11/17 15:15 Urine WBC None seen /HPF (NEGATIVE) 06/11/17 15:15 Ur Squamous Epith Cells Negative /HPF (NEGATIVE) 06/11/17 15:15 Urine Bacteria Negative /HPF (NEGATIVE) 06/11/17 15:15 Ur Culture Indicated? Yes/culture set up 06/11/17 15:15 Stool Description 100g,brown,formed 06/12/17 18:28 Stl Occult Blood (IFOB) Negative (NEGATIVE) 06/12/17 18:28 Digoxin 0.31 ng/mL (0.9-2) L 06/15/17 03:45 H. pylori IgG Antibody Negative (NEGATIVE) 06/11/17 13:10 Hep Bs Antibody 16.45 IU/L 06/13/17 03:28 Hep B Core Total Ab Positive (Negative) H 06/13/17 03:28 Hep B DNA Quant (PCR) <20 IU/mL 06/13/17 03:28 Hepatitis B Viral Load <1.3 log IU 06/13/17 03:28 Hepatitis B Interp Not detected (Not Detected) 06/13/17 03:28 HCV RNA (DNA PCR) <15 IU/mL 06/13/17 03:28 HCV RNA PCR log molecular spectroscopist/ml <1.2 log/IU 06/13/17 03:28 HCV RNA (PCR) EER See note 06/13/17 03:28 Hepatitis C RNA Interp Not detected (Not Detected) 06/13/17 03:28 Tissue Pathology To follow 06/15/17 14:34 - Plan (1) Abdominal pain Status: Acute Qualifiers: Abdominal location: generalized Qualified Code(s): R10.84 - Generalized abdominal pain Plan: LAP RICARDO ON SUNDAY, EGD TODAY, CONTINUE DEMEROL 25MG IV Q6H, CONTINUE TO MONITOR (2) Depression Status: Acute Qualifiers: Depression Type: major depressive disorder Major depression recurrence: recurrent Active/Remission status: remission status unspecified Qualified Code(s): F33.9 - Major depressive disorder, recurrent, unspecified Plan: CONTINUE PROZAC, CONTINUE TO MONITOR (3) Hyperlipidemia Status: Chronic Qualifiers: Hyperlipidemia type: mixed hyperlipidemia Qualified Code(s): E78.2 - Mixed hyperlipidemia Plan: CONTINUE LIPITOR 40MG PO HS, CONTINUE TO MONITOR (4) Cardiac arrhythmia Status: Chronic Qualifiers: Arrhythmia type: unspecified cardiac arrhythmia Qualified Code(s): I49.9 - Cardiac arrhythmia, unspecified Plan: CONTINUE DIGOXIN 0.25MG PO DAILY, CONTINUE TO MONITOR (5) Hypertension Status: Chronic Qualifiers: Hypertension type: essential hypertension Qualified Code(s): I10 - Essential (primary) hypertension Plan: CONTINUE LOPRESSOR 25MG PO BID, CONTINUE TO MONITOR
--- NOTE | 2017-06-17 22:53 | PCM.PROG ---
Progress Note - Progress Note for Day of Date: 06/15/17 - Subjective Subjective: WAS ADMITTED FOR ABDOMINAL PAIN. SHE WAS RECENTLY DISCHARGED FROM [facility] WHERE SHE WAS TREATED FOR PANCREATITIS. TODAY , SHE IS ALERT AND ORIENTED, LYING IN BED ON MORNING ROUNDS. SHE CONTINUES WITH COMPLAINTS OF DIFFUSE ABDOMINAL PAIN. ON EXAMINATION, LUNGS ARE CLEAR TO AUSCULTATION. ABDOMEN IS ROUND, SOFT, AND NOTED WITH MODERATE, DIFFUSE TENDERNESS NOTED. NORMAL BOWEL SOUNDS ARE NOTED IN ALL QUADRANTS. HER VITAL SIGNS TODAY ARE 98.0-53-20-95%-170/76. ABNORMAL LAB VALUES INCLUDE THE FOLLOWING : PLT COUNT 119, CHLORIDE 111, GLUCOSE 102, ALBUMIN 2.8, A/G RATIO 0.8. DONE AN EGD YESTERDAY AND REPORTED FINDINGS OF EROSIVE GASTRITIS. HE RECOMMENDE TO CONTINUE PATIENT ON PROTONIX 40MG PO BID. PLANS TO TAKE PATIENT TO THE OR FOR A LAPROSCOPIC CHOLECYSTECTOMY TODAY. OTHERWISE, WE WILL CONTINUE WITH CURRENT PLAN OF CARE TODAY. WE PLAN TO FOLLOW UP WITH AM LABS AND CONTINUE TO MONITOR PATIENT AFTER SURGERY. - Past Medical Family Social History Past Med/Fam/Surg Hx: No changes since H&P Allergies: Allergies No Known Drug Allergies Allergy (Verified 06/11/17 13:23) - Review of Systems ROS: No change since H&P - Vital Signs and I&O's Vital Signs: Temperature 98.7 F Pulse Rate [Right Brachial] 55 Pulse Rate 89 Respiratory Rate 20 Blood Pressure [Left Arm] 154/76 Blood Pressure [Right Arm] 154/76 Blood Pressure 178/84 O2 Sat by Pulse Oximetry 98 Intake and Output: Intake & Output 06/15/17 06/16/17 06/17/17 06/18/17 11:59 11:59 11:59 11:59 Intake Total 700 1060 Output Total 500 Balance 700 560 - Physical Exam Oriented: Normal Eyes: Normal Ear: Normal Nose: Normal Throat: Normal Respiratory: Normal Cardiovascular: Normal : Normal Auscultation: Bowel Sounds: Normal Palpation: Normal Tenderness: Diffuse, Moderate. negative: Rebound, Guarding, Rigidity Skin: Normal Musculoskeletal: Normal Psychiatric: Normal Mood Description: Calm Affect: Normal Speech Pattern: Clear, Appropriate - Laboratory and Diagnostics Result Diagrams: 06/16/17 03:35 06/16/17 03:35 Labs: 06/11/17 15:29 Urine,Clean Catch Urine Culture - Final Laboratory WBC 7.3 X10^3/uL (3.6-10.0) 06/16/17 03:35 RBC 3.86 X10^6/uL (3.5-5.4) 06/16/17 03:35 Hgb 12.2 g/dL (12.0-16.0) 06/16/17 03:35 Hct 35.6 % (36.0-47.0) L 06/16/17 03:35 MCV 92.3 fL (80.0-100.0) 06/16/17 03:35 MCH 31.5 pg (27.0-34.0) 06/16/17 03:35 MCHC 34.2 g/dL (33.0-35.0) 06/16/17 03:35 RDW 13.6 % (11.6-16.5) 06/16/17 03:35 Plt Count 117 X10^3/uL (150.0-450.0) L 06/16/17 03:35 MPV 11.1 fL (7.4-11.0) H 06/16/17 03:35 Neut % 68.1 % (42.0-75.0) 06/16/17 03:35 Lymph % 21.9 % (21.0-51.0) 06/16/17 03:35 [place] % 8.7 % (0.0-13.0) 06/16/17 03:35 Eos % 0.8 % (0.9-2.9) L 06/16/17 03:35 Baso % 0.5 % (0.2-1.0) 06/16/17 03:35 Neut # 4.9 x10^3/uL (2.2-4.8) H 06/16/17 03:35 Lymph # 1.6 X10^3/uL (1.3-2.9) 06/16/17 03:35 [place] # 0.6 x10^3/uL (0.3-0.8) 06/16/17 03:35 Eos # 0.1 x10^3/uL (0.0-0.2) 06/16/17 03:35 Baso # 0.0 X10^3/uL (0.0-0.1) 06/16/17 03:35 Absolute Nucleated RBC 0.0 /100WBC 06/16/17 03:35 Sodium 143 mmol/L (136-145) 06/16/17 03:35 Corrected Sodium TNP 06/16/17 03:35 Potassium 3.6 mmol/L (3.5-5.1) 06/16/17 03:35 Chloride 107 mmol/L (98-107) 06/16/17 03:35 Carbon Dioxide 30.3 mmol/L (21-32) 06/16/17 03:35 BUN 8 mg/dL (7-18) 06/16/17 03:35 Creatinine 0.54 mg/dL (0.55-1.02) L 06/16/17 03:35 Est GFR (MDRD) Af Amer > 60 (>60) 06/16/17 03:35 Est GFR (MDRD) Non-Af > 60 (>60) 06/16/17 03:35 Glucose 84 mg/dL (65-99) 06/16/17 03:35 Calcium 9.0 mg/dL (8.5-10.1) 06/16/17 03:35 Corrected Calcium 9.7 mg/dL (8.5-10.1) 06/16/17 03:35 Total Bilirubin 0.50 mg/dL (0.2-1.0) 06/16/17 03:35 AST 101 Units/L (15-37) H 06/16/17 03:35 ALT 70 Units/L (12-78) 06/16/17 03:35 Alkaline Phosphatase 107 Units/L (46-116) 06/16/17 03:35 Total Protein 6.6 g/dL (6.4-8.2) 06/16/17 03:35 Albumin 3.1 g/dL (3.4-5.0) L 06/16/17 03:35 Globulin 3.5 g/dL (2.5-4.5) 06/16/17 03:35 Albumin/Globulin Ratio 0.9 Ratio (1.1-2.1) L 06/16/17 03:35 Triglycerides 137 mg/dL (0-150) 06/12/17 03:55 Cholesterol 161 mg/dL (0-200) 06/12/17 03:55 LDL Cholesterol, Calc 92 mg/dL (0-100) 06/12/17 03:55 HDL Cholesterol 42 mg/dL (40-60) 06/12/17 03:55 Cholesterol/HDL Ratio 3.8 (0.0-5.0) 06/12/17 03:55 Amylase 34 Units/L (25-115) 06/12/17 03:55 Lipase 93 Units/L (73-393) 06/12/17 03:55 Specimen Type Clean catch urine 06/11/17 15:15 Urine Color Yellow (YELLOW) 06/11/17 15:15 Urine Appearance Clear (CLEAR) 06/11/17 15:15 Urine pH 8.0 (5.0 - 8.0) 06/11/17 15:15 Ur Specific [place] 1.010 (1.000-1.030) 06/11/17 15:15 Urine Protein Negative (NEGATIVE) 06/11/17 15:15 Urine Glucose (UA) Negative (NEGATIVE) 06/11/17 15:15 Urine Ketones Negative (NEGATIVE) 06/11/17 15:15 Urine Occult Blood 1+ (NEGATIVE) 06/11/17 15:15 Urine Nitrite Negative (NEGATIVE) 06/11/17 15:15 Urine Bilirubin Negative (NEGATIVE) 06/11/17 15:15 Urine Urobilinogen Normal (NORMAL) 06/11/17 15:15 Ur Leukocyte Esterase Negative (NEGATIVE) 06/11/17 15:15 Urine RBC 2-3 /HPF (NEGATIVE) 06/11/17 15:15 Urine WBC None seen /HPF (NEGATIVE) 06/11/17 15:15 Ur Squamous Epith Cells Negative /HPF (NEGATIVE) 06/11/17 15:15 Urine Bacteria Negative /HPF (NEGATIVE) 06/11/17 15:15 Ur Culture Indicated? Yes/culture set up 06/11/17 15:15 Stool Description 100g,brown,formed 06/12/17 18:28 Stl Occult Blood (IFOB) Negative (NEGATIVE) 06/12/17 18:28 Digoxin 0.31 ng/mL (0.9-2) L 06/15/17 03:45 H. pylori IgG Antibody Negative (NEGATIVE) 06/11/17 13:10 Hep Bs Antibody 16.45 IU/L 06/13/17 03:28 Hep B Core Total Ab Positive (Negative) H 06/13/17 03:28 Hep B DNA Quant (PCR) <20 IU/mL 06/13/17 03:28 Hepatitis B Viral Load <1.3 log IU 06/13/17 03:28 Hepatitis B Interp Not detected (Not Detected) 06/13/17 03:28 HCV RNA (DNA PCR) <15 IU/mL 06/13/17 03:28 HCV RNA PCR log coping machine operator/ml <1.2 log/IU 06/13/17 03:28 HCV RNA (PCR) EER See note 06/13/17 03:28 Hepatitis C RNA Interp Not detected (Not Detected) 06/13/17 03:28 Tissue Pathology To follow 06/15/17 14:34 - Plan (1) Abdominal pain Status: Acute Qualifiers: Abdominal location: generalized Qualified Code(s): R10.84 - Generalized abdominal pain Plan: LAP RICARDO TODAY, CONTINUE DEMEROL 25MG IV Q6H, CONTINUE TO MONITOR (2) Erosive gastritis Status: Acute Plan: PROTONIX 40MG BID, CONTINUE TO MONITOR (3) Depression Status: Chronic Qualifiers: Depression Type: major depressive disorder Major depression recurrence: recurrent Active/Remission status: remission status unspecified Qualified Code(s): F33.9 - Major depressive disorder, recurrent, unspecified Plan: CONTINUE PROZAC, CONTINUE TO MONITOR (4) Cardiac arrhythmia Status: Chronic Qualifiers: Arrhythmia type: unspecified cardiac arrhythmia Qualified Code(s): I49.9 - Cardiac arrhythmia, unspecified Plan: CONTINUE DIGOXIN 0.25MG PO DAILY, CONTINUE TO MONITOR (5) Hyperlipidemia Status: Chronic Qualifiers: Hyperlipidemia type: mixed hyperlipidemia Qualified Code(s): E78.2 - Mixed hyperlipidemia Plan: CONTINUE LIPITOR 40MG PO HS, CONTINUE TO MONITOR (6) Hypertension Status: Chronic Qualifiers: Hypertension type: essential hypertension Qualified Code(s): I10 - Essential (primary) hypertension Plan: CONTINUE LOPRESSOR 25MG PO BID, CONTINUE TO MONITOR
== END 2017-06-16 14:30 | disposition home or self-care (01) | DRG 392 ==
LOC: UNDOADMIN 10:53 → MED/SURG 10:53
PROVIDERS: ADMIT Internal Medicine; ATTEND Internal Medicine
PROC: 0DB88ZX Excision of Small Intestine, Via Natural or Artificial Opening Endoscopic, Diagnostic (ICD-10-PCS; 2017-06-14)
PROC: 0DB68ZX Excision of Stomach, Via Natural or Artificial Opening Endoscopic, Diagnostic (ICD-10-PCS; principal; 2017-06-14 19:00)
PROC: 0FT44ZZ Resection of Gallbladder, Percutaneous Endoscopic Approach (ICD-10-PCS; 2017-06-15)
DX: R10.84 Generalized abdominal pain (principal); R11.2 Nausea with vomiting, unspecified; I48.91 Unspecified atrial fibrillation; R10.13 Epigastric pain; K29.60 Other gastritis without bleeding; K22.10 Ulcer of esophagus without bleeding; K82.8 Other specified diseases of gallbladder; K74.69 Other cirrhosis of liver; I49.9 Cardiac arrhythmia, unspecified; F33.8 Other recurrent depressive disorders; Z87.19 Personal history of other diseases of the digestive system; K21.9 Gastro-esophageal reflux disease without esophagitis; B18.2 Chronic viral hepatitis C; I10 Essential (primary) hypertension
CPT/HCPCS: 36415; 71010; 74000; 74160; 76705; 78227; 80053; 80061; 80162; 81001; 82150; 82270; 83690; 85025; 86677; 86704; 86706; 87086; 87340; 87517; 87522; 88305; 88342; 93005; A4216; A4222; A9537; S0020; A4217; J0330; J0690; J1170; J1885; J2001; J2175; J2250; J2405; J2550; J2710; J3010; J3490